=== PATIENT | male | born 1960 | race Caucasian/White ===

== ENCOUNTER 2016-11-22 08:03 | Emergency (ER) | payer OTHER ==
[2016-11-22] MEDS ORDERED: IPRATROPIUM/ALBUTEROL 3 ML DEYVIAL IH ONE (08:17)
[2016-11-22] MEDS ORDERED: predniSONE 20 MG TAB PO ONE (08:17)
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
--- NOTE | 2016-11-22 08:32 | CPEKG ---
Heart Rate: 93 RR Interval: 645 P-R Interval: 136 QRSD Interval: 84 QT Interval: 348 QTC Interval: 433 P [place]: 69 QRS [place]: 46 T Wave [place]: 38 EKG Severity - NORMAL ECG - EKG Impression: SINUS RHYTHM Electronically Signed By: Arron Woodard 22-Nov-2016 08:41:23
[2016-11-22 08:56] LABS: % IMMATURE GRANULYOCYTES 0.3 % (0.0-1.1); ABSOLUTE IMMATURE GRANULOCYTES 0.02 10^3/uL (0.00-0.10); ADD DIFF? NO; ADD MORPH? NO; ADD SCAN? NO; ATYPICAL LYMPHOCYTE FLAG 10 (0-99); FRAGMENT RBC FLAG 0 (0-99); HEMOGLOBIN 15.3 g/dL (13.7-17.5); LEFT SHIFT FLG 0 (0-99); LIPEMIA HEMOLYSIS FLAG 90 (0-99); MEAN CELL HEMOGLOBIN 32.2 pg (27.9-34.1); MEAN CELL HEMOGLOBIN CONCENTR. 34.8 g/dL (32.4-36.7); MEAN CELL VOLUME 92.6 fL (81.5-99.8); MEAN PLATELET VOLUME 9.6 fL (8.7-11.7); PLATELET CLUMPS FLAG 0 (0-99); PLATELET COUNT 195 10^3/uL (150-400); RED BLOOD CELL COUNT 4.75 10^6/uL (4.40-6.38); RED CELL DISTRIBUTION WIDTH 12.5 % (11.5-15.2)
[2016-11-22 09:06] LABS: INR 1.04 (0.83-1.16); PROTIME(PATIENT) 13.3 SEC (12.0-15.0)
[2016-11-22 09:07] LABS: APTT 33.2 SEC (23.0-38.0)
[2016-11-22] MEDS ORDERED: ALBUTEROL 3 ML DEYVIAL IH ONE (09:08)
[2016-11-22 09:10] LABS: ANION GAP 13 mEq/L (8-16); BILIRUBIN,TOTAL 0.6 mg/dL (0.1-1.4); CARBON DIOXIDE 26 mEq/l (22-31); CHLORIDE 96 mEq/L (97-110); CREATININE 0.7 mg/dL (0.7-1.3); GLOMERULAR FILTRATION RATE > 60; GLUCOSE 122 mg/dL (70-100); POTASSIUM 3.9 mEq/L (3.5-5.2); SODIUM 135 mEq/L (134-144)
[2016-11-22] MEDS ORDERED: AZITHROMYCIN 250 MG TAB PO ONE (10:06)
[2016-11-22 11:11] VITALS: BP 140/83; PULSE 85; RESP 16; TEMP 97.7; O2SAT 91
== END 2016-11-22 11:11 | disposition home or self-care (01) ==
LOC: CED 08:03
DX: R06.02 Shortness of breath (principal); R09.81 Nasal congestion; R05 Cough; M41.86 Other forms of scoliosis, lumbar region; M43.16 Spondylolisthesis, lumbar region; M47.896 Other spondylosis, lumbar region; M51.36 Other intervertebral disc degeneration, lumbar region; J45.909 Unspecified asthma, uncomplicated; Z87.891 Personal history of nicotine dependence
CPT/HCPCS: 71020-PO; 72100-PO; 80048-PO; 82247-PO; 83605-PO; 85025-PO; 85610-PO; 85730-PO; 87400-PO; 87880-PO; 93010-PO; 99214-PO; G0463-PO